=== PATIENT | female | born 1970 | race African-American/Black ===

== ENCOUNTER 2019-03-20 15:56 | Emergency (ER) | payer OTHER ==
[~2019-03-20] VITALS: Ht 170.2 cm; Wt 120.2 kg
[2019-03-20 16:12] VITALS: BP_SYST 155; BP_SYST 201; BP_DIAS 103; BP_DIAS 97
--- NOTE | 2019-03-20 16:22 | NUR ---
PT AMB TO BED 9
--- NOTE | 2019-03-20 16:40 | NUR ---
PT AMBULATED TO ER BED 11
[2019-03-20] MEDS ORDERED: hydrALAZINE 20 MG/ML VIAL IVP ONE (16:55)
[2019-03-20] MEDS ORDERED: LORazepam 2 MG/ML VIAL IVP ONE (16:55)
--- NOTE | 2019-03-20 17:00 | NUR ---
48/F PRESENTS SELF TO ED, C/O PRESSURE-LIKE L SIDED CHEST PAIN NONRADIATING, X3 DAYS INTERMITTENTLY. PT REPORTS FEELING ANXIOUS. DENIES SOB, N/V/D. PT AWAKE AND ALERT, SKIN NORMAL COLOR WARM AND DRY, RR EVEN AND UNLABORED. LUNG SOUNDS CLEAR BL. S1S2 PRESENTS, NSR ON MONITOR. HX HTN, ANXIETY RX HCTZ, NAPROXEN
[2019-03-20 17:04] LABS: BASOPHILS # (AUTO) 0.1 K/uL (0.00-0.22); BASOPHILS % (AUTO) 0.9 % (0.0-2.0); EOSINOPHILS # (AUTO) 0.2 K/uL (0-0.4); EOSINOPHILS % (AUTO) 2.7 % (0.0-4.0); HEMATOCRIT 41.6 % (36-48); HEMOGLOBIN 13.6 g/dL (12.0-16.0); LYMPHOCYTES # (AUTO) 1.7 K/uL (2.5-16.5); LYMPHOCYTES % (AUTO) 29.5 % (20.5-51.1); MEAN CORPUSCULAR HEMOGLOBIN 31 pg (27-31); MEAN CORPUSCULAR HGB CONC 33 g/dL (33-37); MONOCYTES # (AUTO) 0.7 K/uL (0.8-1.0); MONOCYTES % (AUTO) 11.2 % (1.7-9.3); NEUTROPHILS # (AUTO) 3.3 K/uL (1.8-7.7); NEUTROPHILS % (AUTO) 55.7 % (42.2-75.2); PLATELET COUNT (AUTO) 224 K/uL (140-450); RED BLOOD CELL COUNT(AUTO) 4.47 MIL/uL (4.20-5.40); RED CELL DISTRIBUTION WIDTH 14.1 % (11.6-13.7); WHITE BLOOD COUNT (AUTO) 5.9 K/uL (4.8-10.8)
[2019-03-20 17:20] LABS: CARBON DIOXIDE 28.6 mmol/L (21-32); CREATININE 0.7 mg/dL (0.6-1.3); POTASSIUM 3.6 mmol/L (3.5-5.1)
[2019-03-20 17:28] LABS: ALBUMIN 3.7 g/dL (3.4-5.0); TOTAL BILIRUBIN 0.4 mg/dL (0.0-1.0)
--- NOTE | 2019-03-20 17:30 | NUR ---
BP WNL, HYDRALAZINE NOT GIVEN PER DR GARCIA
--- NOTE | 2019-03-20 18:08 | NUR ---
CALLED PT'S AUNT AKIN, STATED THAT PT WAS GIVEN ATIVAN IV AND CANNOT DRIVE HOME, PT'S AUNT TO DRIVE PT HOME, ETA 20 MINS.
[2019-03-20 18:20] VITALS: BP 140/68
[2019-03-20 18:30] LABS: APPEARANCE,URINE CLEAR (CLEAR); BILIRUBIN,URINE NEGATIVE (NEGATIVE); BLOOD, URINE 2+ (NEGATIVE); COLOR,URINE YELLOW (YELLOW); LEUKOCYTE ESTERASE ,URINE NEGATIVE (NEGATIVE); NITRITE, URINE NEGATIVE (NEGATIVE); UGLUCOSE NEGATIVE (NEGATIVE)
[2019-03-20 18:36] LABS: RBC,URINE 0-5 /HPF (0-5); WBC,URINE 0-5 /HPF (0-5)
== END 2019-03-20 18:20 | disposition home or self-care (01) ==
LOC: MED 15:56
DX: F41.9 Anxiety disorder, unspecified (principal); R07.9 Chest pain, unspecified; I10 Essential (primary) hypertension; Z88.0 Allergy status to penicillin
CPT/HCPCS: 36415; 71046; 80053; 81001; 84484; 85025; 85379; 93005; 96374; 99284; J2060; Q0092; J0360